=== PATIENT | female | born 1960 | race Caucasian/White ===

== ENCOUNTER 2018-01-14 05:44 | Day surgery (SDC) | payer OTHER ==
[2018-01-14] MEDS ORDERED: LR 1,000 ML IV ONE (05:50)
[2018-01-14] MEDS ORDERED: LIDOCAINE 1% 2 ML INJ ID PRN (05:50)
--- NOTE | 2018-01-14 07:04 | PDANEPAE ---
ANE History of Present Illness fibroids, pelvic pain and here for hysteroscopy, morcellator with poss D&C ANE Past Medical History - Cardiovascular History Hx Hypertension: No Hx Arrhythmias: No Hx Chest Pain: No Hx Coronary Artery / Peripheral Vascular Disease: No Hx CHF / Valvular Disease: No Hx Palpitations: No Cardiovascular History Comment: pt thinks she has murmur - Pulmonary History Hx COPD: No Hx Asthma/Reactive Airway Disease: No Hx Recent Upper Respiratory Infection: No Hx Oxygen in Use at Home: No Hx Sleep Apnea: No Sleep Apnea Screening Result - Last Documented: Negative - Neurologic History Hx Cerebrovascular Accident: No Hx Seizures: No Hx Dementia: No - Endocrine History Hx Diabetes: No - Renal History Hx Renal Disorders: No - Liver History Hx Hepatic Disorders: No - Neurological & Psychiatric Hx Hx Neurological and Psychiatric Disorders: No - Cancer History Hx Cancer: No - Congenital Disorder History Hx Congenital Disorders: No - GI History Hx Gastrointestinal Disorders: No - Other Health History Other Health History: permanent upper dental bridge. wears glasses on driving - Chronic Pain History Chronic Pain: No - Surgical History Prior Surgeries: appy at 20 yo ANE Review of Systems Review of Systems: - Exercise capacity METS (RN): 4 METS ANE Patient History - Allergies Allergies/Adverse Reactions: No Known Allergies Allergy (Verified 01/13/18 16:29) - Home Medications Home Medications: Iron 01/13/18 [Last Taken Unknown] Progesterone 01/13/18 [Last Taken Unknown] - NPO status NPO Since - Liquids (Date): 01/13/18 NPO Since - Liquids (Time): 21:00 NPO Since - Solids (Date): 01/13/18 NPO Since - Solids (Time): 21:00 - Smoking Hx Smoking Status: Never smoked - Family Anes Hx Family Hx Anesthesia Complications: none ANE Labs/Vital Signs - Vital Signs Blood Pressure: 132/77 Heart Rate: 63 Respiratory Rate: 18 O2 Sat (%): 100 Height: 165.1 cm Weight: 56.699 kg ANE Physical Exam - Airway Neck exam: FROM Mallampati Score: Class 1 Mouth exam: normal dental/mouth exam - Pulmonary Pulmonary: no respiratory distress - Cardiovascular Cardiovascular: regular rate and rhythym - ASA Status ASA Status: II ANE Anesthesia Plan Anesthesia Plan: GA w LMA Total IV Anesthesia: No
[2018-01-14] MEDS ORDERED: MIDAZOLAM 2 MG/2 ML VIAL IVP ONE (07:06)
--- NOTE | 2018-01-14 07:16 | PDHPUP ---
History & Physical Update H&P update statement: This history and physical update is based on an assessment of the patient which was completed after admission or registration (within 24 hours), but prior to the surgery/procedure. H&P update: H&P reviewed & patient examined, no change in patient's condition since H&P completed
[2018-01-14] MEDS ORDERED: LIDOCAINE 2% 5 ML SDV ONE (07:19)
[2018-01-14] MEDS ORDERED: ONDANSETRON 4 MG/2 ML VIAL ONE (07:19)
[2018-01-14] MEDS ORDERED: PROPOFOL 200 MG/20 ML VIAL ONE (07:19)
[2018-01-14] MEDS ORDERED: PHENYLEPHRINE HCL 100 MCG/ML SYR ONE (07:19)
[2018-01-14] MEDS ORDERED: KETOROLAC 30 MG/1 ML SDV ONE (07:19)
[2018-01-14] MEDS ORDERED: fentaNYL 100 MCG/2 ML INJ ONE (07:19)
[2018-01-14] MEDS ORDERED: DEXAMETHASONE 4 MG/ML VIAL ONE (07:19)
[2018-01-14] MEDS ORDERED: DIAZEPAM 5 MG/ML 1 ML SYR IVP PRN (08:33)
[2018-01-14] MEDS ORDERED: HYDROmorphONE/DILAUDID 2 MG/ML INJ IVP PRN (08:33)
[2018-01-14] MEDS ORDERED: LR 500 ML IV PRN (08:33)
[2018-01-14] MEDS ORDERED: MEPERIDINE 25 MG/0.5 ML AMP IVP PRN (08:33)
[2018-01-14] MEDS ORDERED: PROMETHAZINE HCL 25 MG/ML INJ IVP PRN (08:33)
[2018-01-14] MEDS ORDERED: NALOXONE HCL 0.4 MG/ML INJ IVP PRN (08:33)
[2018-01-14] MEDS ORDERED: oxyCODONE IR 5 MG TAB PO PRN (08:33)
--- NOTE | 2018-01-14 08:34 | POSTANESTH ---
Post Anesthetic Evaluation Cardiovascular Status: Normal, Stable Respiratory Status: Normal, Stable Level of Consciousness/Mental Status: Can Participate in Eval Pain Control: Adequate, Prn Tx Ordered Nausea/Vomiting Control: Adequate, Prn Tx Ordered Complications Possibly Related to Anesthesia: None Noted
--- NOTE | 2018-01-14 09:02 | POSTOPPROG ---
Post Op Note Date of Operation: 01/14/18 Surgeon: Val Cummings Anesthesiologist: Britney Quinones Anesthesia: LMA Pre-op Diagnosis: DUB , endometrial polyps and fibroids Post-op Diagnosis: same Indication: DUB Procedure: H/S plypectomy , myomectomy, novasure Findings: extensive polyps and 2 fibroids Inf/Abcess present in the surg proc area at time of surgery?: No EBL: Minimal Complications: none
[2018-01-14 10:14] VITALS: BP 113/69
--- NOTE | 2018-01-14 11:09 | GOP ---
DATE OF OPERATION: 01/14/2018 SURGEON: Val Cummings MD ANESTHESIA: General with LMA. ANESTHESIOLOGIST: Naima Quinones MD. PREOPERATIVE DIAGNOSIS: 1. Dysfunctional uterine bleeding. 2. Endometrial polyps and fibroids. 3. Anemia. POSTOPERATIVE DIAGNOSIS: 1. Dysfunctional uterine bleeding. 2. Endometrial polyps and fibroids. 3. Anemia. PROCEDURE PERFORMED: Hysteroscopic polypectomy and myomectomy and NovaSure endometrial ablation. FINDINGS: Extensive endometrial polyps throughout the uterine cavity and 2 distinct fibroids, one at the fundal wall and one at the right lower uterine segment, both measuring about a centimeter. ESTIMATED BLOOD LOSS: Minimal. INDICATIONS: Patient is a 57-year-old who has had regular menstrual cycles until November 2017, start ed to have a period, and it did not stop and was seen initially on 12/27/2017, for prolonged bleeding episode. Blood count at that time was 30, and she was started on Provera. She did not respond well to the Provera and actually had to go up to 60 mg to control the bleeding. Ultrasound sonohysterogra m showed extensive polyps and 2 fibroids, and patient desires definitive treatment. DESCRIPTION OF PROCEDURE: With informed consent signed, patient taken to the operating room and [facility] ed under general anesthesia without complication, placed in the low dorsal lithotomy position, preppe d and draped in the usual sterile fashion. Bladder previously emptied. Speculum placed in the vagin a. Tenaculum placed on the anterior lip of the cervix. Uterus sounded to 8 cm. The cervix was then dilated up to 6 mm and hysteroscope placed using normal saline. Then the [employer] morcellator placed into the uterine cavity. This was with a small scope, which was I think the 4 mm scope. Resection was very slow, so the hysteroscope was switched out to the 9 mm and resection of al l the polyps and fibroids done without complication. There was such extensive tissue that it took qu ite a while, probably about 20-25 minutes to resect all the tissue. Once it was felt that everything was removed, the NovaSure endometrial ablation device was placed into the uterine cavity and measure d to be a length of 6.5. Width was 5.0. Integrity test passed and burn time was 25 seconds. The No vaSure removed and net fluid deficit was 140 cc. Patient placed in a supine position, awakened in [facility] operating room, and taken to the recovery room in stable condition. Tolerated the procedure well. COMPLICATIONS: None. /[id number]/MODL
== END 2018-01-14 10:10 | disposition home or self-care (01) ==
LOC: FSGY 05:44
PROVIDERS: ATTEND Obstetrics & Gynecology Gynecology
PROC: 0UB98ZZ Excision of Uterus, Via Natural or Artificial Opening Endoscopic (ICD-10-PCS; 2018-01-14)
PROC: 0U5B8ZZ Destruction of Endometrium, Via Natural or Artificial Opening Endoscopic (ICD-10-PCS; principal; 2018-01-14 07:15)
DX: D25.9 Leiomyoma of uterus, unspecified (principal); N84.0 Polyp of corpus uteri; D64.9 Anemia, unspecified
CPT/HCPCS: 58561; 58563; C1782; J1100; J1885; J2250; J2370; J2405; J2704; J3010